=== PATIENT | female | born 1995 | race Caucasian/White ===

== ENCOUNTER 2017-03-15 23:33 | Emergency (ER) | payer MEDICAID ==
[~2017-03-15] VITALS: Ht 167.6 cm; Wt 90.7 kg
[2017-03-15 23:37] VITALS: BP_SYST 111
[2017-03-16] MEDS ORDERED: ONDANSETRON 4 MG ODT TAB PO ONE
[2017-03-16 00:43] LABS: BILIRUBIN,URINE NEGATIVE (NEGATIVE); BLOOD, URINE NEGATIVE (NEGATIVE); CLARITY/URINE CLEAR (CLEAR); COLOR,URINE YELLOW (YELLOW); GLUCOSE,URINE NEGATIVE (NEGATIVE); KETONES,URINE TRACE (NEGATIVE); LEUKOCYTE ESTERASE ,URINE NEGATIVE (NEGATIVE); NITRITE, URINE NEGATIVE (NEGATIVE); PROTEIN URINE TRACE (NEGATIVE); UROBILINOGEN,URINE 0.2 (0.2-1.0)
[2017-03-16 01:03] VITALS: BP_SYST 111
[2017-03-16 01:05] LABS: BACTERIA,URINE MODERATE /HPF (None Seen); MUCUS,URINE None Seen /LPF (None Seen); RBC,URINE 0-3 /HPF (0-3); WBC,URINE 0-3 /HPF (0-3)
== END 2017-03-16 01:03 | disposition home or self-care (01) ==
LOC: SED 23:33
DX: A08.4 Viral intestinal infection, unspecified (principal); Z86.79 Personal history of other diseases of the circulatory system
CPT/HCPCS: 81000; 81025; 87086; 99284; Q0162

== ENCOUNTER 2022-08-12 01:01 | Emergency (ER) | payer MEDICAID ==
[~2022-08-12] VITALS: Ht 170.2 cm; Wt 99.8 kg
[2022-08-12 01:09] VITALS: BP_SYST 137
== END 2022-08-12 01:50 | disposition left against medical advice (07) ==
LOC: SED 01:01
DX: K62.5 Hemorrhage of anus and rectum (principal); Z53.21 Procedure and treatment not carried out due to patient leaving prior to being seen by health care provider